=== PATIENT | male | born 1935 | race Caucasian/White ===

== ENCOUNTER 2019-03-09 23:59 | Observation (INO) | payer MEDICARE, MEDICAID ==
[2019-03-10 01:44] LABS: Bilirubin Negative (Negative); Blood, Urine Negative (Negative); Clarity Clear (Clear); Glucose, Urine (Dipstick) Normal (Negative); Leukocyte Negative Leu/uL (Negative); Nitrite Negative (Negative); Protein, Urine (Dipstick) 20 mg/dL (Neg-Trace)
[2019-03-10 02:33] LABS: Hemoglobin 14.1 g/dL (14.0-18.0); Mean Corpuscular Hemoglobin 34.9 pg (27.0-31.0); Mean Corpuscular Volume 99.6 fL (78.0-98.0); RBC Distribution Width 12.3 % (11.5-14.5); Red Blood Cell (RBC) Count 4.05 mill/uL (4.70-6.10)
[2019-03-10 02:50] LABS: #Basophils 0.1 thou/uL (0.0-0.2); #Eosinphils 0.1 thou/uL (0.0-0.7); #Lymphocytes 1.6 thou/uL (1.20-3.40); #Monocytes 0.5 thou/uL (0.11-0.59); #Neutrophils 5.7 thou/uL (1.40-6.50); %Basophils 0.8 % (0.0-1.0); %Lymphocytes 19.9 % (21.0-51.0); %Monocytes 6.3 % (0.0-10.0); %Neutrophils 71.9 % (42.0-75.0); Mean Platelet Volume 7.5 fL (7.4-10.4); Platelet Count 80 thou/uL (130-400); Platelet Morphology Comment Appears Decreased
[2019-03-10 03:06] LABS: ALT (SGPT) 15 U/L (8-55); AST (SGOT) 29 U/L (5-34); Albumin 4.1 g/dL (3.4-4.8); Alkaline Phosphatase 99 U/L (40-110); Anion Gap 16 mmol/L (10-20); BUN (Urea Nitrogen) 31 mg/dL (8.4-25.7); Bilirubin, Total 0.8 mg/dL (0.2-1.2); CK (CPK) 79 U/L (30-200); Calc. Creatinine Clearance 0 mL/min (70-130); Calcium 9.8 mg/dL (7.8-10.44); Carbon Dioxide 24 mmol/L (23-31); Chloride 103 mmol/L (98-107); Estimated GFR-MDRD 57; Globulin 3.6 g/dL (2.4-3.5); Glucose 93 mg/dL (83-110); Potassium 4.9 mmol/L (3.5-5.1); Protein, Total 7.7 g/dL (5.8-8.1); Sodium 138 mmol/L (136-145)
[2019-03-10 06:06] LABS: Troponin I 0.011 ng/mL (< 0.028)
--- NOTE | 2019-03-10 08:15 | RAD ---
PORTABLE CHEST: DATE: 03/10/2019. PROVIDED CLINICAL HISTORY: Syncope. FINDINGS: Comparison 01/30/2019. Cardiac and mediastinal silhouette is unchanged in appearance. No focal conso lidation, pleural fluid, or pneumothorax apparent. IMPRESSION: No evidence for an acute cardiopulmonary process. Please correlate with subsequently performed chest CT. POS: OFF
[2019-03-10 09:10] LABS: Troponin I 0.011 ng/mL (< 0.028)
--- NOTE | 2019-03-10 09:20 | CT ---
PRELIMINARY REPORT/[facility]/EMERGENCY AFTER HOURS PROCEDURE: PROCEDURE INFORMATION: Exam: CT Cervical Spine Without Contrast Exam date and time: 03/10/2019 1:37 AM Clinical history: 83 years old, male; Injury or trauma; Initial encounter; Abrasion; Patient HX: Er 1 4. PT arrived by EMS, had a fall in the bathroom due to syncopal episode. TECHNIQUE: Imaging protocol: Computed tomography images of the cervical spine without contrast. COMPARISON: No relevant prior studies available. FINDINGS: Vertebrae: No acute fracture. Normal alignment. Discs/Spinal canal/Neural foramina: No spinal stenosis. No neural foraminal narrowing. Soft tissues: Unremarkable. Lungs: Lung apices are normal. IMPRESSION: No acute findings. Thank you for allowing us to participate in the care of your patient. Dictated and Authenticated by: Joselito Merlos MD 03/10/2019 1:48 AM Central Time ([place] & [place]) FINAL REPORT CERVICAL SPINE CT WITHOUT CONTRAST: Date: 03/10/19 COMPARISON: None. HISTORY: Fall, syncope. FINDINGS: This report is in agreement with the preliminary report given by Grecia. No acute fracture or evidence of dislocation. Imaged lung apices unremarkable. Occipital condyles, dens, and C1-2 articulation appe ar within normal limits. Degenerative change at the atlantoaxial interspace noted. The craniocervical and cervicothoracic junction demonstrate no acute findings. IMPRESSION: No displaced fracture or evidence of dislocation. POS: [facility]
--- NOTE | 2019-03-10 09:21 | CT ---
PRELIMINARY REPORT/[facility]/EMERGENCY AFTER HOURS PROCEDURE: PROCEDURE INFORMATION: Exam: CT Head Without Contrast Exam date and time: 03/10/2019 1:38 AM Clinical history: 83 years old, male; Injury or trauma; Initial encounter; Abrasion; Not specified; Patient HX: Er 14. PT arrived by EMS, had a fall in the bathroom due to syncopal episode. TECHNIQUE: Imaging protocol: Computed tomography of the head without contrast. COMPARISON: No relevant prior studies available. FINDINGS: Brain: No intracranial hemorrhage or brain edema. Symmetric bifrontal and biparietal brain atrophy. Ventricles: Normal. No ventriculomegaly. Bones/joints: Unremarkable. No acute fracture. Sinuses: Visualized sinuses are unremarkable. No fluid levels. Mastoid air cells: Visualized mastoid air cells are well aerated. Soft tissues: Unremarkable. IMPRESSION: No acute findings. Thank you for allowing us to participate in the care of your patient. Dictated and Authenticated by: Joselito Merlos MD 03/10/2019 1:53 AM Central Time ([place] & [place]) FINAL REPORT HEAD CT WITHOUT CONTRAST: Date: 03/10/19 COMPARISON: None. HISTORY: Syncope, trauma. FINDINGS: This report is in agreement with the preliminary report given by Grecia. Visualized paranasal sinuses a nd mastoid air cells are well aerated. No displaced calvarial fracture. There is frontoparietal volume loss bilaterally with associated prominence of the CSF-containing spac es, particularly the subdural space at the vertex. No intracranial hemorrhage, midline shift, or mass effect. IMPRESSION: No intracranial hemorrhage or displaced calvarial fracture. POS: [facility]
--- NOTE | 2019-03-10 09:24 | CT ---
PRELIMINARY REPORT/[facility]/EMERGENCY AFTER HOURS PROCEDURE: PROCEDURE INFORMATION: Exam: CT Angiography Chest With Contrast Exam date and time: 03/10/2019 3:29 AM Clinical history: 83 years old, male; Patient HX: Elevated d-dimer; 83/m PT presents with complaint o f syncope ribber TECHNIQUE: Imaging protocol: Computed tomographic angiography of the chest with intravenous contrast. 3D renderi ng: MIP reconstructed images were created and reviewed. COMPARISON: No relevant prior studies available. FINDINGS: Pulmonary arteries: Normal. No pulmonary emboli. Aorta: Unremarkable. No aortic aneurysm. No aortic dissection. Lungs: Approximately 1.3 cm irregular mixed groundglass consolidation nodular opacity in the left low er lobe is indeterminate, potentially mild pneumonia/aspiration, scarring, atypical infection, or elaine plasm. Pleural space: Unremarkable. No pneumothorax. No pleural effusion. Heart: Cardiomegaly. Mediastinum: Esophagus is unremarkable. There is depend ent bubbly fluid in the dependent trachea and right and left mainstem bronchi which could be mucous secretions or aspirated material. Kidneys and ureters: Incidental left renal cyst. Round hypodense lesion of the right kidney does not meet strict CT criteria for a simple cyst and is indeterminate, potentially a hyperdense cyst. It thelma sures 1.5 cm and 18 Hounsfield units. Lymph nodes: Unremarkable. No enlarged lymph nodes. Bones/joints: Unremarkable. No acute fracture. Soft tissues: Unremarkable. IMPRESSION: 1. Approximately 1.3 cm irregular mixed groundglass consolidation nodular opacity in the left lower l obe is indeterminate, potentially mild pneumonia/aspiration, scarring, atypical infection, or neoplas m. 2. There is dependent bubbly fluid in the dependent trachea and right and left mainstem bronchi which could be mucous secretions or aspirated material. Thank you for allowing us to participate in the care of your patient. Dictated and Authenticated by: Joselito Merlos MD 03/10/2019 4:04 AM Central Time ([place] & [place]) FINAL REPORT CT ANGIOGRAM OF CHEST: Date: 03/10/19 HISTORY: Elevated D-Dimer. Syncope. COMPARISON: None. TECHNIQUE: CT angiogram of chest performed in axial plane. Three-dimensional reformatted images are submitted fo r interpretation. FINDINGS: Adequate contrast opacification of pulmonary arterial system to the level of the segmental arteries. No filling defect to suggest thromboembolism. There does appear to be secretion or debris in the dist al trachea and left mainstem bronchus. Nonspecific patchy ground-glass opacity in the superior segmen t of the left lower lobe. IMPRESSION: This report is in agreement with the preliminary report by Grecia. No evidence of pulmonary artery embo lism to the level of the segmental arteries. Additional findings as described in the preliminary repo rt by Grecia, as well as in the final report. Continued surveillance to ensure resolution is recommende d. POS: [facility]
[2019-03-10] MEDS ORDERED: Ondansetron ODT 4 MG TAB PO PRN (09:43)
[2019-03-10] MEDS ORDERED: Ondansetron PF 4 MG/2 ML Vial IVP PRN (09:43)
[2019-03-10] MEDS ORDERED: Sodium Chloride 0.9% 1,000 ML IV SCH (09:45)
[2019-03-10] MEDS ORDERED: Meclizine HCl 25 MG TAB PO PRN (11:03)
[2019-03-10] MEDS ORDERED: Acetaminophen 325 MG TAB PO PRN (11:05)
[2019-03-10 11:14] VITALS: BMI 21.1
--- NOTE | 2019-03-10 11:42 | MRI ---
Brain MRI without contrast: 03/10/2019 COMPARISON: None HISTORY: Confusion, multiple falls TECHNIQUE: Multiplanar multisequence MR imaging of the brain is obtained with and without contrast FINDINGS: The gradient echo imaging demonstrates no evidence for intracranial hemorrhage. There are n umerous foci of increased T2 and FLAIR signal scattered throughout the periventricular, deep, and subcortical white matter, evidence of small vessel disease. Arterial flow voids at the axial level of the skull base appear grossly unremarkable on the T2-weighted imaging. There is polypoid mucosal thickening involving the maxillary sinus on the left. No midline shift or mass effect is noted. The subdural space is prominent bilaterally, following the signal intensity of CSF on all provided pulse sequences suggesting small bilateral subdural hygromas or prominence of the subdural space on the basis of cerebral volume loss. Regional bone marrow signal intensity appears within normal limits. IMPRESSION: Chronic findings as detailed above. No evidence for acute infarction or intracranial hemo rrhage.
--- NOTE | 2019-03-10 14:14 | HP ---
PCP: None. CHIEF COMPLAINT: Syncope. HISTORY OF PRESENT ILLNESS: Mr. Urrutia is an 83-year-old man who reported to the emergency room for complaint of syncope prior to arrival. States he was walking into the bathroom and the next thing he remembers he woke up on the floor. He reports he has had multiple episodes of syncope in the last 2 weeks. He came to the emergency, wearing a Holter monitor to evaluate for causes of the syncope. The patient reports that he was recently seen and treated at [facility] for similar and discharged to home. The patient denies any complaints. Reports that he feels fine. He does not have any pain. Reports that all his family members passed out from time to time. He reports that he has a history of atrial fibrillation and was on Eliquis, but the physicians over at [facility] told him not to take it with his recent history of multiple falls. He reports the doctors told him in [facility] that his workup was fine. He does report a cough. Does report that he has been smoking cigarettes for the last 40 years and smokes about a pack and half a day. Denies any history of any CVA. The patient admitted to the observation unit for further management. REVIEW OF SYSTEMS: Reports syncope. Reports palpitations. The patient is not the best historian. Records supplemented via ER record. PAST MEDICAL HISTORY: Atrial fibrillation, UTI, syncope, and CHF. PAST SURGICAL HISTORY: Lung surgery in 1962 for pleural effusion, appendectomy, and hernia repair x2. SOCIAL HISTORY: Lives at home with his family. Denies any alcohol or drug use. Does smoke cigarettes and 1.5 packs a day over 40 year-history. KNOWN ALLERGIES: None. CURRENT MEDICATIONS: 1. Lipitor 40 mg p.o. once a day. 2. Augmentin 875 p.o. b.i.d. 3. Meclizine 25 mg p.o. q.8 hours p.r.n. PHYSICAL EXAMINATION: VITAL SIGNS: Temperature 97.8, pulse is 73, respirations 22, pO2 sats are 98% on room air, and blood pressure is 129/63. GENERAL: The patient is pleasantly confused. He appears pain free. He is oriented to person, place, and time. HEENT: Head; head is normocephalic. There is a contusion to the right orbit. Eyes; eyelids are normal to inspection. Pupils are equally round and reactive to light. Extraocular muscles are intact. ENT, mouth exam is normal. Mucous membranes are moist. NECK: Normal range of motion. Trachea is midline. RESPIRATORY/CHEST: No findings of any respiratory distress. Scattered diffuse rhonchi. CARDIOVASCULAR: Irregularly irregular. Heart sounds are normal. ABDOMEN: Bowel sounds are heard. No tenderness to palpation. BACK: Normal inspection. Normal range of motion. Upper extremity, normal range of motion. Motor strength is normal. Sensation is intact. Radial pulses are normal. Lower extremity, normal range of motion. Motor strength is normal. Sensation intact. Pedal pulses are normal. NEUROLOGIC: The patient is oriented to person, place, and time. Speech is normal. SKIN: Warm, dry, normal in color. Has abrasions to the left ear. Contusion to the right orbit. DIAGNOSTIC STUDIES: EKG shows atrial fibrillation with controlled ventricular response, beats per minute 78, conduction and ST segments are normal, T-waves are normal, axis is normal. PERTINENT LABORATORY DATA: White blood cell count is 8, hemoglobin 14.1, hematocrit is 40.4, and platelet count is 80. D-dimer 1.45. Chemistry, BUN is 31, globulin 3.6. Troponin x3 are undetectable. Urine, negative. ASSESSMENT AND PLAN: 1. MRI of the brain in relation to recent fall with syncope and recently being taken off his Eliquis. The patient was wearing a Holter monitor when he came into the ER. We have asked Cardiology to consult to see if monitor could be interrogated. We would appreciate their recommendations, PT evaluation as well. Carotid Doppler ultrasound. We have asked for the records from his last hospitalization from [facility] to be requested to help as evaluate what has already been done and what the findings were. 2. The patient had a CTA of the chest, thorax while in the emergency room. Findings remarkable for mixed ground-glass consolidation, nodular opacity in the left lower lobe with a dependent bubbly fluid in the dependent trachea and right and left mainstem bronchi, which could be mucus secretions are aspirated material. We have asked Speech to do an evaluation and also continue the Augmentin that the patient was on as an outpatient. If possible, these findings were seen on his previous admission in [place], these records would be very helpful. 3. Hyperlipidemia. We will restart home medications. 4. Deep venous thrombosis and gastrointestinal prophylaxis started. The patient will be given SCDs. Pepcid. Hospital course is dependent on clinical findings. Job ID: [id number]
[2019-03-10] MEDS ORDERED: Ampicillin/Sulbactam 3 GM in Sodium Chloride 0.9% 100 ML IVPB SCH (15:00)
--- NOTE | 2019-03-10 15:00 | RAD ---
Modified barium swallow: 03/10/2019 COMPARISON: None HISTORY: Unspecified dysphasia, feeding difficulties FINDINGS: A modified barium swallow was performed in conjunction with a member of the division of spe ech pathology. The patient is imaged in the lateral projection swallowing various consistencies of barium. Oral phase is markedly delayed. There is residua within the vallecula with all consistencies. No penetration or aspiration seen. IMPRESSION: No penetration or aspiration seen. Please see speech pathologist report for full detail a nd feeding recommendations.
--- NOTE | 2019-03-10 15:56 | ULT ---
CAROTID DOPPLER: Date: 03/10/19 Ultrasound and Doppler study is performed on the extracranial carotid arteries. INDICATION: Syncope. FINDINGS: Ultrasound images show mild intimal thickening and mild echogenic plaque in the bulb regions. Velocity recordings are normal bilaterally. No evidence of significant stenosis. Vertebral arteries show antegrade flow. IMPRESSION: 1. Mild intimal thickening and mild echogenic plaque bilaterally. 2. No evidence of significant stenosis identified by Doppler velocity. POS: [facility]
[2019-03-10] MEDS: Nicotine 14 MG PATCH TD SCH (17:26)
--- NOTE | 2019-03-10 18:30 | CON ---
DATE OF CONSULTATION: HISTORY OF PRESENT ILLNESS: The patient is an unfortunate 83-year-old gentleman , who presents after losing consciousness. The patient is a poor historian. He states that he was in [facility] when he presented there after losing consciousness. He was sent home apparently with a Holter monitor. The patient once again had another episode where he was in the bathroom. He suddenly lost consciousness. The patient denied having any chest discomfort. He denies having any dyspnea. PAST MEDICAL HISTORY: 1. Chronic atrial fibrillation. 2. Dyslipidemia. 3. Hypertension. PAST SURGICAL HISTORY: Lung surgery, appendectomy, and hernia surgery. ALLERGIES: NO KNOWN DRUG ALLERGIES. MEDICATION: 1. Lipitor 40 at bedtime. 2. Augmentin 875 b.i.d. FAMILY HISTORY: There is a positive family history of heart disease. SOCIAL HISTORY: Long history of tobacco abuse. REVIEW OF SYSTEMS: Ten-point system otherwise unremarkable. PHYSICAL EXAMINATION: GENERAL: Thin gentleman, in no acute distress. VITAL SIGNS: Blood pressure 133/64 sitting, standing was 133/69, supine 123/ 67. NECK: No jugular venous distention. LUNGS: Coarse breath sounds bilateral. HEART: Irregular rate and rhythm. Normal S1 and S2. No murmurs. ABDOMEN: Nondistended. EXTREMITIES: Show trace edema. VASCULAR: Radial pulses are 2+. LABORATORY RESULTS: His white blood cell count is 8.0, hemoglobin 14.1, hematocrit 40.4, platelets are 80. His sodium is 138, potassium 4.9, chloride 103, bicarbonate 24, BUN 31, creatinine 1.2, and glucose is 93. EKG revealed atrial fibrillation otherwise unremarkable EKG. IMPRESSION: 1. Syncope. 2. Atrial fibrillation. 3. Dyslipidemia. 4. Tobacco abuse. This gentleman presents with a syncopal episode. He has had several falls. hE HAS been taken off Eliquis due to fall risk. Records are not available. From a cardiac standpoint, we will ask EP to evaluate whether he would be an appropriate patient for Watch[facility] and whether he should have a LINQ device. We will try to review the patient's Holter monitor. We will follow this patient with you through his hospitalization. Job ID: [id number] MTDD
[2019-03-10] MEDS: Famotidine 20 MG TAB PO SCH (20:55)
[2019-03-10] MEDS: Amoxicillin/Potassium Clav 875 MG TAB PO SCH (20:55)
[2019-03-11 05:29] LABS: #Basophils 0.1 thou/uL (0.0-0.2); #Eosinphils 0.1 thou/uL (0.0-0.7); #Lymphocytes 1.9 thou/uL (1.20-3.40); #Monocytes 0.6 thou/uL (0.11-0.59); #Neutrophils 2.8 thou/uL (1.40-6.50); %Basophils 1.7 % (0.0-1.0); %Eosinophils 2.7 % (0.0-10.0); %Lymphocytes 33.7 % (21.0-51.0); %Monocytes 10.9 % (0.0-10.0); Mean Corpuscular HGB CONC 35.8 g/dL (32.0-36.0); Mean Corpuscular Hemoglobin 35.2 pg (27.0-31.0); Mean Corpuscular Volume 98.5 fL (78.0-98.0); Mean Platelet Volume 6.7 fL (7.4-10.4); Platelet Count 175 thou/uL (130-400); RBC Distribution Width 11.9 % (11.5-14.5); Red Blood Cell (RBC) Count 3.39 mill/uL (4.70-6.10); White Blood Cell (WBC) Count 5.6 thou/uL (4.8-10.8)
[2019-03-11 05:56] LABS: Anion Gap 9 mmol/L (10-20); BUN (Urea Nitrogen) 11 mg/dL (8.4-25.7); Calc. Creatinine Clearance 59 mL/min (70-130); Calcium 9.3 mg/dL (7.8-10.44); Carbon Dioxide 27 mmol/L (23-31); Chloride 103 mmol/L (98-107); Estimated GFR-MDRD 79; Glucose 87 mg/dL (83-110); Potassium 3.9 mmol/L (3.5-5.1); Sodium 135 mmol/L (136-145)
[2019-03-11] MEDS ORDERED: Amoxicillin/Potassium Clav 875 MG TAB PO SCH ×2 (09:00)
[2019-03-11] MEDS ORDERED: Enoxaparin Sodium 40 MG/0.4 ML SYRINGE SC SCH (09:00)
[2019-03-11] MEDS: Amoxicillin/Potassium Clav 875 MG TAB PO SCH ×2 (10:03→20:44)
[2019-03-11] MEDS: Atorvastatin Calcium 40 MG TAB PO SCH (10:03)
[2019-03-11] MEDS: Famotidine 20 MG TAB PO SCH ×2 (10:03→20:44)
--- NOTE | 2019-03-11 13:03 | PDOC.HOSPP ---
- Subjective Subjective: Patient is doing ok. Denies problems. He does not recall the town in which he lives. Says he recently moved from [place]. Says he weighed 201 pounds about 8 months ago. Now 147. On questioning, the patient says he was recently seen in [place]. Said he walked out of the hospital wearing a monitor. It is unclear to if this was a holter or if the patient walked out wearing the hospital monitor. - Objective Vital Signs & Weight: Vital Signs (12 hours) Temp Pulse Pulse Pulse Pulse Pulse Resp 03/11/19 11:30 97.9 F 65 16 03/11/19 10:10 84 03/11/19 09:07 65 83 98 82 03/11/19 07:08 97.9 F 57 L 17 03/11/19 04:30 60 18 BP BP BP BP BP BP BP 03/11/19 11:30 03/11/19 10:10 114/55 L 03/11/19 09:07 112/59 L 108/56 L 110/55 L 107/66 03/11/19 07:08 101/56 L 03/11/19 04:30 100/59 L BP BP Pulse Ox 03/11/19 11:30 100 03/11/19 10:10 108/56 L 107/57 L 03/11/19 09:07 03/11/19 07:08 97 03/11/19 04:30 96 Weight Weight 147 lb 4.8 oz I&O: 03/10/19 03/11/19 03/12/19 06:59 06:59 06:59 Output Total 600 Balance -600 Result Diagrams: 03/11/19 04:55 03/11/19 04:55 Hospitalist ROS - Medication Medications: Active Medications Generic Name Dose Route Start Last Admin Trade Name Freq PRN Reason Stop Dose Admin Amoxicillin/Clavulanate Potassium 875 mg 03/10/19 21:00 03/11/19 10:03 Augmentin PO 875 mg Q12HR MARIA DEL CARMEN Administration Atorvastatin Calcium 40 mg 03/11/19 09:00 03/11/19 10:03 Lipitor PO 40 mg DAILY MARIA DEL CARMEN Administration Famotidine 20 mg 03/10/19 21:00 03/11/19 10:03 Pepcid PO 20 mg BID MARIA DEL CARMEN Administration Nicotine 14 mg 03/10/19 15:00 03/10/19 17:26 Nicoderm Patch TD Not Given Q24HR MARIA DEL CARMEN Sodium Chloride 10 ml 03/10/19 21:00 03/11/19 10:03 Flush - Normal Saline IVF 10 ml Q12HR MARIA DEL CARMEN Administration - Exam General Appearance: NAD, awake alert General - other findings: Very thin. ENT - other findings: Bruise to left ear and right upper lid. Heart: RRR, no murmur, no gallops, no rubs, normal peripheral pulses Respiratory: CTAB, no wheezes, no rales, no ronchi, normal chest expansion, no tachypnea, normal percussion Respiratory - other findings: Rattle cough. Gastrointestinal: soft, non-tender, non-distended, normal bowel sounds, no palpable masses, no hepatomegaly, no splenomegaly, no bruit Extremities: no cyanosis, no clubbing, no edema Skin: normal turgor Musculoskeletal: normal tone Musculoskeletal - other findings: Generalized sarcopenia with temporalis wasting. Psychiatric: normal affect, not oriented Hosp A/P (1) Syncope Code(s): R55 - SYNCOPE AND COLLAPSE Status: Acute (2) Aspiration pneumonitis Code(s): J69.0 - PNEUMONITIS DUE TO INHALATION OF FOOD AND VOMIT Status: Acute (3) Dementia Code(s): F03.90 - UNSPECIFIED DEMENTIA WITHOUT BEHAVIORAL DISTURBANCE Status: Acute (4) Dysphagia Code(s): R13.10 - DYSPHAGIA, UNSPECIFIED Status: Acute (5) Weight loss Status: Acute (6) Protein-calorie malnutrition, moderate Code(s): E44.0 - MODERATE PROTEIN-CALORIE MALNUTRITION Status: Acute (7) Hyperlipidemia Code(s): E78.5 - HYPERLIPIDEMIA, UNSPECIFIED Status: Acute - Plan He has had a couple of apparent syncopal episodes. EP consult pending. He has had negative CTA chest, CXR and nothing acute on the CT head. Appears to have some muscle wasting. Needs more thorough workup, but can be done as OP. Modified diet.
[2019-03-11] MEDS: Nicotine 14 MG PATCH TD SCH (14:35)
[2019-03-12] MEDS: Famotidine 20 MG TAB PO SCH (08:43)
[2019-03-12] MEDS: Amoxicillin/Potassium Clav 875 MG TAB PO SCH (08:43)
[2019-03-12] MEDS: Atorvastatin Calcium 40 MG TAB PO SCH (08:43)
--- NOTE | 2019-03-12 12:05 | PDOC.HOSPP ---
- Subjective Encounter Date: 03/12/19 Encounter Time: 07:00 Subjective: pt did not agree today to have procedure done today, I explained him about that , will see if he change his mind Patient seen and examined. No new complaints. No overnight events - Objective Vital Signs & Weight: Vital Signs (12 hours) Temp Pulse Resp BP BP BP BP 03/12/19 11:49 97.3 F L 58 L 16 107/56 L 03/12/19 07:07 97.8 F 62 14 93/54 L 99/55 L 116/53 L 03/12/19 03:46 97.5 F L 65 22 H 110/58 L Pulse Ox 03/12/19 11:49 97 03/12/19 07:07 95 03/12/19 03:46 96 Weight Weight 143 lb 4.8 oz I&O: 03/11/19 03/12/19 03/13/19 06:59 06:59 06:59 Intake Total 480 240 Output Total 600 350 Balance -600 130 240 Result Diagrams: 03/11/19 04:55 03/11/19 04:55 EKG Reviewed by me: Yes Hospitalist ROS - Review of Systems ENT: denies: ear pain, ear discharge, nose pain, nose discharge, nose congestion , mouth pain, mouth swelling, throat pain, throat swelling, other Respiratory: denies: cough, dry, shortness of breath, hemoptysis, SOB with excertion, pleuritic pain, sputum, wheezing, other Cardiovascular: denies: chest pain, palpitations, orthopnea, paroxysmal noc. dyspnea, edema, light headedness, other Gastrointestinal: denies: nausea, vomiting, abdominal pain, diarrhea, constipation, melena, hematochezia, other Genitourinary: denies: dysuria, frequency, incontinence, hematuria, retention, other Musculoskeletal: denies: neck pain, shoulder pain, arm pain, back pain, hand pain, leg pain, foot pain, other - Medication Medications: Active Medications Generic Name Dose Route Start Last Admin Trade Name Freq PRN Reason Stop Dose Admin Amoxicillin/Clavulanate Potassium 875 mg 03/10/19 21:00 03/12/19 08:43 Augmentin PO 875 mg Q12HR MARIA DEL CARMEN Administration Atorvastatin Calcium 40 mg 03/11/19 09:00 03/12/19 08:43 Lipitor PO 40 mg DAILY MARIA DEL CARMEN Administration Famotidine 20 mg 03/10/19 21:00 03/12/19 08:43 Pepcid PO 20 mg BID MARIA DEL CARMEN Administration Nicotine 14 mg 03/10/19 15:00 03/11/19 14:35 Nicoderm Patch TD Not Given Q24HR MARIA DEL CARMEN Sodium Chloride 10 ml 03/10/19 21:00 03/12/19 08:43 Flush - Normal Saline IVF 10 ml Q12HR MARIA DEL CARMEN Administration - Exam General Appearance: NAD, awake alert Eye: PERRL, anicteric sclera ENT: normocephalic atraumatic, no oropharyngeal lesions Neck: supple, symmetric, no JVD, no thyromegaly Heart: RRR, no murmur, no gallops, no rubs Respiratory: CTAB, no wheezes, no rales, no ronchi Gastrointestinal: soft, non-tender, non-distended, normal bowel sounds Extremities: no cyanosis, no clubbing, no edema Skin: normal turgor, no lesions Neurological: cranial nerve grossly intact, no focal deficits Musculoskeletal: normal tone, normal strength Psychiatric: normal affect, normal behavior Hosp A/P (1) Aspiration pneumonitis Code(s): J69.0 - PNEUMONITIS DUE TO INHALATION OF FOOD AND VOMIT Status: Acute (2) Dementia Code(s): F03.90 - UNSPECIFIED DEMENTIA WITHOUT BEHAVIORAL DISTURBANCE Status: Acute Qualifiers: Dementia type: unspecified type Dementia behavioral disturbance: without behavioral disturbance Qualified Code(s): F03.90 - Unspecified dementia without behavioral disturbance (3) Dysphagia Code(s): R13.10 - DYSPHAGIA, UNSPECIFIED Status: Acute Qualifiers: Dysphagia type: oropharyngeal phase Qualified Code(s): R13.12 - Dysphagia, oropharyngeal phase (4) Hyperlipidemia Code(s): E78.5 - HYPERLIPIDEMIA, UNSPECIFIED Status: Chronic (5) Protein-calorie malnutrition, moderate Code(s): E44.0 - MODERATE PROTEIN-CALORIE MALNUTRITION Status: Chronic (6) Syncope Code(s): R55 - SYNCOPE AND COLLAPSE Status: Acute Qualifiers: Syncope type: unspecified Qualified Code(s): R55 - Syncope and collapse (7) Weight loss Status: Acute - Plan old records reviewed/req, continue antibiotics, social service manager medication reviewed as above symptomatic treatment today plan for procedure for recorder placement home health on discharge outpt work up for weight loss discharge possible later today after procedure
[2019-03-12] MEDS ORDERED: Lidocaine 1% w/Epinephrine 1:100K 20 ML VIAL ONE (12:35)
--- NOTE | 2019-03-12 14:49 | OP ---
DATE OF PROCEDURE: 03/12/2019 PROCEDURE PERFORMED: LINQ recorder implant. REASON FOR PROCEDURE: Mr. Urrutia is an 83-year-old man with prior history of chronic atrial fibrillation, frequent falls, and syncope of unclear reason, here for LINQ recorder implant. DESCRIPTION OF PROCEDURE: Prepectoral area was prepped and draped and the subcutaneous lidocaine was used for local analgesia. The 4th intercostal space incision was made with a [employer] tool kit and LINQ recorder was inserted without difficulty. Dermabond was applied over the device and the LINQ recorder was programed. CONCLUSION: Successful LINQ recorder implant with model #20772, serial #[id number]. PLAN: Routine monitoring as per Dr. Hernandes. Job ID: [id number]
--- NOTE | 2019-03-12 15:43 | PDOC.CPN ---
- Subjective Date: 03/12/19 Time: 15:42 Interval history: follow up for atrial fibrillation, syncope, and OAC management. - Review of Systems General: denies: fever/chills, weight/appetite/sleep changes, night sweats, fatigue Respiratory: denies: shortness of breath Cardiovascular: denies: chest pain, palpitation Gastrointestinal: denies: nausea, vomiting, diarrhea Musculoskeletal: denies: tenderness Neurological: denies: syncope - Objective Allergies/Adverse Reactions: Allergies Allergy/AdvReac Type Severity Reaction Status Date / Time No Known Allergies Allergy Verified 03/10/19 09:55 Visit Medications: Current Medications Acetaminophen (Tylenol) 650 mg PO Q4H PRN PRN Reason: Headache/Fever/Mild Pain (1-3) Amoxicillin/Clavulanate Potassium (Augmentin) 875 mg PO Q12HR [facility] Last Admin: 03/12/19 08:43 Dose: 875 mg Atorvastatin Calcium (Lipitor) 40 mg PO DAILY [facility] Last Admin: 03/12/19 08:43 Dose: 40 mg Famotidine (Pepcid) 20 mg PO BID [facility] Last Admin: 03/12/19 08:43 Dose: 20 mg Meclizine HCl (Antivert) 25 mg PO Q8H PRN PRN Reason: Dizziness Nicotine (Nicoderm Patch) 14 mg TD Q24HR [facility] Last Admin: 03/11/19 14:35 Dose: Not Given Sodium Chloride (Flush - Normal Saline) 10 ml IVF Q12HR [facility] Last Admin: 03/12/19 08:43 Dose: 10 ml Sodium Chloride (Flush - Normal Saline) 10 ml IVF PRN PRN PRN Reason: Saline Flush Vital Signs & Weight: Vital Signs Temp Pulse Resp BP BP BP BP 03/12/19 13:34 74 18 134/63 03/12/19 11:49 97.3 F L 58 L 16 107/56 L 03/12/19 07:07 97.8 F 62 14 93/54 L 99/55 L 03/12/19 03:46 97.5 F L 65 22 H 110/58 L BP Pulse Ox 03/12/19 13:34 97 03/12/19 11:49 97 03/12/19 07:07 116/53 L 95 03/12/19 03:46 96 Weight 143 lb 4.8 oz - Physical Exam General: alert & oriented x3 HEENT: mucus membranes moist Neck: supple neck, midline trachea Cardiac: no murmur, other (irreg irreg) Lungs: clear to auscultation Neuro: grossly intact - Labs Result Diagrams: 03/11/19 04:55 03/11/19 04:55 Troponin/CKMB Troponin I 0.011 ng/mL (< 0.028) 03/10/19 08:31 - Assessment/Plan Assessment/Plan: 1. Syncope and collapse, recurrent 2. CHADS2-VASC: 3 (age, HTN) - OAC in indicated but on hold/contraindicated with recurrent falls and trauma d/t risk for bleeding complications 3. Atrial fibrillation -thought to be chronic Recommend watchman for left atrial appendage closure. Taken off eliquis 03/05 for above reasons. Can arrange as OP procedure in [place], starting Eliquis 2.5mg PO BID when WM is placed until BIGG 6 weeks after implant. Trying to reach patients daughter to discuss this per pt request.
--- NOTE | 2019-03-12 15:59 | DIS ---
DATE OF ADMISSION: 03/10/2019 DATE OF DISCHARGE: 03/12/2019 DISCHARGE DISPOSITION: Home with home health with outpatient PT, OT, speech. PRIMARY DISCHARGE DIAGNOSES: Aspiration pneumonia, recurrent fall, syncope, oropharyngeal dysphagia, failure to thrive. SECONDARY DISCHARGE DIAGNOSES: Moderate protein calorie malnutrition, dyslipidemia, dementia. PRIMARY PROCEDURE/OPERATION: LINQ recorder placement. RADIOLOGICAL INVESTIGATION: CT brain, CT chest, CT cervical spine, chest x-ray, carotid Doppler, MRI brain, echocardiography. SIGNIFICANT LABORATORY DATA: WBC 5.6, hemoglobin 12.0, platelet 175. Sodium 135, creatinine 0.92. LFT normal. Cardiac enzyme negative. DISCHARGE MEDICATIONS: 1. Augmentin 875 mg b.i.d. for 5 days. 2. Lipitor 40 mg p.o. daily. 3. Antivert 25 mg q.8 hourly p.r.n. CONTRAINDICATION: None. CODE STATUS: Full code. INPATIENT CONSULTANTS: Cardiology and Electrophysiology were consulted while in hospital. TEST RESULT PENDING ON DISCHARGE: None. ALLERGIES: NO KNOWN DRUG ALLERGIES. DISCHARGE PLAN: Posthospital, the patient will follow up with primary care physician. HOSPITAL COURSE: The patient was admitted by Tami Donovan. Please see her H and P for further details. The patient was having syncopal episode and recurrent fall. The patient underwent multiple investigations during this admission. CT brain was negative for any acute process. Cervical spine negative for any fracture or dislocation. Chest x-ray was unremarkable, but CT angio showed some finding suspicious for aspiration pneumonia. MRI brain was unremarkable. Carotid Doppler was unremarkable. Modified barium swallow showed some aspiration and then modified diet was advised. Echocardiography was unremarkable. For monitoring his rhythm, we placed LINQ recorder in his chest. The patient is discharged to home with home health and speech therapy. Overall, the patient is medically stable for discharge. Further workup will be done as an outpatient basis. Job ID: [id number]
[2019-03-12 16:27] VITALS: BP 132/68; TEMP 97.4
[2019-03-12] MEDS: Nicotine 14 MG PATCH TD SCH (16:47)
--- NOTE | 2019-03-13 13:48 | CON ---
DATE OF CONSULTATION: 03/11/2019 REASON FOR CONSULTATION: Recurrent syncope and collapse. HISTORY OF PRESENT ILLNESS: Mr. Urrutia is an 83-year-old gentleman, who presented to the emergency room after syncopal episode. He is a poor historian. He initially was in [facility] for prior syncopal episode and was discharged with a Holter monitor. He had a recurrent episode when he was in the bathroom and suddenly lost consciousness. He denies any awareness of a prodrome either palpitations, dizziness, tunnel vision, etc. He denies any heart racing, palpitations, chest pain, pressure, shortness of breath, or stroke-like symptoms. REVIEW OF SYSTEMS: A 12-point review of systems is conducted as best possible, but the patient is a poor historian and is negative except as per HPI. PAST MEDICAL HISTORY: 1. Atrial fibrillation, thought to be chronic. 2. Dyslipidemia. 3. Hypertension. ALLERGIES: NO KNOWN DRUG ALLERGIES. HOME MEDICATIONS: Include 1. Lipitor 40 mg daily. 2. Antivert 25 mg p.o. p.r.n. 3. Augmentin daily. FAMILY HISTORY: Positive for coronary artery disease. Negative for sudden cardiac . SOCIAL HISTORY: Long history of tobacco abuse. Negative for alcohol or illicit drug use. OBJECTIVE: VITAL SIGNS: Temperature 97.9, pulse 60, blood pressure 121/63, respirations 17, and oxygen is 96% on room air. GENERAL: The patient is alert. He is in no apparent distress during the time of exam. NECK: Supple without jugular venous distention. LUNG: Sounds are clear bilaterally without wheezes, crackles, or rhonchi. HEART: Heart rate is irregularly irregular. No significant murmur, rub, or gallop is appreciated. There is a crisp S2. PMI is nondisplaced. ABDOMEN: Soft and nontender without palpable masses. Hepatojugular reflux is negative. EXTREMITIES: Warm and dry to touch, well perfused with trace edema bilaterally. Gait was not assessed. DATABASE: Hematology was reviewed. Hemoglobin 12, and platelet count is 175. Chemistry; potassium 3.9, creatinine 0.92. Serial troponins were negative. ALT and AST were within normal limits. Echocardiogram is pending. Telemetry and EKG show atrial fibrillation, occasional bradycardia in the 40s and fairly frequent premature ventricular complexes. IMPRESSION: 1. Recurrent syncope and collapse. 2. Atrial fibrillation, possibly chronic. 3. Frequent falls surrounding his syncope, resulting in facial trauma. 4. CHADS-VASc score of 3 on the basis of advanced age and hypertension, at risk for bleeding complications with chronic anticoagulation given his frequent falls and syncopal episodes, good candidate for Watchman for left atrial appendage closure. PLAN AND RECOMMENDATIONS: 1.Given his syncope and collapse of unknown etiology that is recurrent, he would benefit from LINQ implantable loop recorder for arrhythmia monitoring. He is also seen to have bradycardia on his telemetry, though no pauses greater than 3 seconds at this time. 2. Consider Watchman for left atrial appendage closure as an outpatient if able to tolerate low-dose oral anticoagulation long enough for the dory device placement. Long-term, he is a poor candidate for anticoagulation given his frequent falls and risk for significant bleeding complications. Mr. Urrutia voices that he wishes to proceed with an implantable loop recorder at the earliest convenience. He understands the risks, benefits, and alternatives as we discussed this. Thank you for allowing me to participate in the care of this patient. Job ID: [id number] [facility]
== END 2019-03-12 18:52 | disposition home health service (06) ==
LOC: ERS 23:59 → ERHOLD 03-10 04:19 → 2SW 03-10 09:13
PROVIDERS: ADMIT Internal Medicine; ATTEND Internal Medicine
PROC: 0JH632Z Insertion of Monitoring Device into Chest Subcutaneous Tissue and Fascia, Percutaneous Approach (ICD-10-PCS; principal; 2019-03-12)
DX: R55 Syncope and collapse (principal); I48.20 Chronic atrial fibrillation, unspecified; J69.0 Pneumonitis due to inhalation of food and vomit; F17.210 Nicotine dependence, cigarettes, uncomplicated; F17.290 Nicotine dependence, other tobacco product, uncomplicated; I11.0 Hypertensive heart disease with heart failure; I50.9 Heart failure, unspecified; E78.5 Hyperlipidemia, unspecified; F03.90 Unspecified dementia, unspecified severity, without behavioral disturbance, psychotic disturbance, mood disturbance, and anxiety; R13.12 Dysphagia, oropharyngeal phase; E44.0 Moderate protein-calorie malnutrition; R62.7 Adult failure to thrive; R63.4 Abnormal weight loss; Z68.20 Body mass index [BMI] 20.0-20.9, adult; Z79.01 Long term (current) use of anticoagulants; Z79.2 Long term (current) use of antibiotics; Z79.899 Other long term (current) drug therapy
CPT/HCPCS: 33285; 70450; 70551; 71045; 71275; 72125; 74230; 80048; 80053; 81003; 82550; 84484 ×2; 85025 ×2; 85379; 93005; 93306; 93880; 97116; 97139; 99285; 99406; C1764; G0378 ×4; 36415